=== PATIENT | female | born 1940 | race Caucasian/White ===

== ENCOUNTER → 2016-12-28 | Outpatient (CLI) | payer MEDICARE, BC ==
[~2016-12-28] MED LIST: BACTRIM DS TAB1 EACH; CELECOXIB200 MG PO; HARD NAILS2500 MCG PO; LEVOTHYROXINE137 MCG PO; PANTOPRAZOLE SO40 MG PO; POTASSIUM99 M2 PO; TENORMIN25 M1 PO
--- NOTE | ~2016-12-28 | CO ---
Unit #: [id number] #: [id number] Patient: JIM FOSTER [id number] [address] [place], [place] [address] [id number] O MR#: [id number] NAME: JIM FOSTER ROOM: Age: 76 Sex: F Admission Date: 12/28/2016 : 1940 Attending Physician: Blas Molina M.D. Primary Care Physician: Gold Henry M.D. Consultation Date: 12/28/2016 CONSULTATION REPORT REASON FOR CONSULTATION Preoperative medical evaluation prior to conversion of right unicompartmental knee arthroplasty to total right knee arthroplasty is scheduled by Dr. Molina for 01/11/2017. HISTORY OF PRESENT ILLNESS The patient is a 76-year-old female, who presents to preprocedural screening for the reasons indicated above. The patient reports intermittent pain in the right knee joint somewhat worse after she caught her foot on a blanket getting out of bed this morning and twisted it. She denies chest, arm, neck, jaw pain or pressure. She denies shortness of breath, obstructive sleep apnea, paroxysmal nocturnal dyspnea. She states she will have intermittent lightheadedness, which she states, is associated with sinus congestion. She denies presyncope or syncope. She denies history of myocardial infarction, congestive heart failure, CHF, CVA, many strokes, type 2 diabetes mellitus, or kidney disease. She does have a history of an "air embolism," which she states affected her brain after back surgery and during which time, she describes symptoms similar to delirium episode. She has no residual affects. She has been evaluated by Dr. Molina and scheduled for the above-referenced procedure. PAST MEDICAL HISTORY 1. Osteoarthritis. 2. Hypothyroidism. 3. Obesity, BMI of 34. 4. 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 5. History of palpitations and arrhythmias. 6. History of bradycardia. 7. Hypertension. 8. Recent urinary tract infection on Bactrim. 9. Gastroesophageal reflux disease. 10. History of polyps. 11. Restless legs syndrome. 12. History of bilateral lower extremity venous insufficiency. 13. Health maintenance. The patient has appointment to have teeth cleaned on Monday. PAST SURGICAL HISTORY 1. Tonsillectomy. 2. Bilateral leg vein ligation. 3. D and C x2. 4. Thyroidectomy. 5. Partial hysterectomy with appendectomy. Unit #: [id number] #: [id number] Patient: JIM FOSTER 6. Cholecystectomy. 7. Back surgery x3. 8. Partial right knee replacement. 9. Cataract extraction. Please note, the patient denies a personal and family history of complications to anesthesia. ALLERGIES Denies latex allergy. Penicillins caused "throat to swell," codeine causes severe nausea, and adhesive tape causes irritated skin. CURRENT MEDICATIONS Tenormin 25 mg p.o. at bedtime, levothyroxine sodium 137 mcg p.o. daily, pantoprazole sodium 40 mg p.o. daily, Celebrex 200 mg p.o. b.i.d., potassium 2 tabs p.o. daily, Bactrim DS one tab in the afternoon for urinary tract infection, and hard nails biotin 2500 mcg p.o. daily. SOCIAL HISTORY Denies tobacco use. Consumes EtOH occasionally and denies illicit drug use. FAMILY HISTORY Cancer in both parents. REVIEW OF SYSTEMS Intermittent sinus congestion, chronic left lower extremity edema. A 10-point review of systems is conducted and otherwise negative except as indicated under history of present illness above. PHYSICAL EXAMINATION GENERAL: A 76-year-old female, awake, alert, in no acute distress. VITAL SIGNS: Temperature 97.1, heart rate 57, respiratory rate 18, blood pressure 129/73, and oxygen saturation 99% on room air. HEENT: Atraumatic and normocephalic. Sclerae anicteric. No discharge from eyes, ears, or nares. LYMPH: No preauricular, postauricular, tonsillar, submental, anterior, posterior, or cervical adenopathy. ENDOCRINE: No thyromegaly, thyroid nodules, or tenderness. RESPIRATORY: Clear to auscultation in all pena bilaterally without wheezes, rhonchi, or rales. CARDIOVASCULAR: S1 and S2. Regular rate and rhythm without murmur or rub. GI: Bowel sounds are positive x4. Soft, nontender, and nondistended. EXTREMITIES: 1+ left lower extremity nonpitting edema. No edema in right lower extremity. Calves, soft and nontender bilaterally. NEUROLOGIC: Alert and oriented x3. Speech is clear. Follows directions during examination. DIAGNOSTIC STUDIES LABORATORY RESULTS: WBC 6.7, hemoglobin 12.9, hematocrit 39.6, and platelets 275,000. Sodium 140, potassium 4.4, chloride 103, CO2 of 28, glucose 101, BUN 21, creatinine 0.9, calcium 9.2, AST 19, ALT 18, alkaline phosphatase 72, bilirubin total 0.7, total protein 7.2, and albumin 4.3. Urinalysis negative with neither microscopic nor culture indicated. PT 10.2, INR 0.9. Blood type A negative. Antibody screen negative. MRSA nasal swab report pending at this time. Unit #: [id number] #: [id number] Patient: JIM FOSTER IMAGING STUDIES: Two-view chest x-ray report pending at this time. CARDIOLOGY: 12-lead EKG, sinus bradycardia, low voltage QRS, borderline ECG. Confirmed report pending at this time. IMPRESSION The patient is a 76-year-old female, who presents to preprocedural screening for: 1. Preoperative medical evaluation prior to conversion failed unicompartmental right knee to right total knee arthroplasty. The patient's Healy revised cardiac risk index is equal to 0.4% to 0.5% and represents the patient's rate of fatal or nonfatal myocardial infarction, cardiopulmonary arrest, arrhythmia, and/or pulmonary edema. This has been discussed in detail with the patient. She wishes to proceed with surgery as scheduled at this time. Given the patient's history of palpitations. We will recommend telemetry postoperatively. The patient is completely asymptomatic and is not having palpitations on clinical exam at this time. 2. Hypothyroidism. We will continue home dose of levothyroxine and check TSH and free T4 of blood in lab today. 3. Obesity. BMI of 34. 4. 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 5. History of bradycardia. 6. Hypertension. Continue current medications and adjust based on blood pressure postoperatively. 7. Urinary tract infection on Bactrim. The patient is established with Dr. Sergey Humphries, urologist and has an appointment to follow up on Monday of this week for recheck of urine culture. The patient has been informed that her culture at this time is negative for urinary tract infection. She is asymptomatic. However, it has been emphasized. She is to complete her antibiotic as prescribed and to keep her appointment with Dr. Humphries on Monday and she has verbalized understanding this information. 8. Gastroesophageal reflux disease. 9. History of polyps. 10. Osteoarthritis. 11. Restless legs syndrome. 12. History of venous insufficiency. 13. Health maintenance: The patient is to have her dentist to provide a letter of preoperative dental clearance from her dentist to Dr. Molina prior to surgery. Thank you for allowing us to participate in the care of this patient. We will gladly follow her for postop medical management pending order of Dr. Molina. Dictated by... Perla Liriano A.P.R.N. for Justen Xiao/lesia TD: 12/29/2016 14:42 JOB #: [id number] Unit #: [id number] #: [id number] Patient: JIM FOSTER CONSULTATION REPORT Page 1 of 1 X Perla Liriano APRN X CONSULTATION REPORT
--- NOTE | ~2016-12-28 | CR63 ---
[facility] A Service of [facility] RADIOLOGY TEXT RESULTS PATIENT: JIM FOSTER LOCATION: [facility] : [birth year] UNIT #: [id number] AGE: [address]: Blas Molina MD SEX: F ORDER DR: [id number] [facility] [address]. [place], [place] [address] [id number] O MR#: [id number] Acc #: [id number] NAME: JIM FOSTER : 1940 SEX: F STUDY DATE/TIME: 12/28/2016 17:22 UNIT: [facility] ROOM: STUDY DESCRIPTION: CR Chest 2 View Attending Physician: Blas Molina M.D. Referring Physician: Blas Molina M.D. Ordering Physician: Blas Molina M.D. Primary Care Physician: Gold Henry M.D. MEDICAL IMAGING REPORT This report is preliminary unless electronic signature is present EXAM PA and lateral chest radiograph. INDICATIONS Preoperative examination prior to conversion of a uni right knee to a right knee arthroplasty. FINDINGS Comparison made to prior exam from July 15, 2011. Heart size is within normal limits. The patient appears to some scarring versus atelectasis at the left lung base. No pneumothorax or pleural effusion is seen. No aggressive osseous abnormalities are identified. IMPRESSION Scarring versus atelectasis noted at the left lung base, otherwise, no acute disease. Dictated by... Mary Alaniz M.D. THIS IS AN ELECTRONICALLY VERIFIED REPORT Mary Alaniz M.D. at 12/29/2016 2:43 PM AFF/bd TD: 12/29/2016 12:26 JOB #: [id number] MEDICAL IMAGING REPORT Page 1 of 1 COPY
--- NOTE | ~2016-12-28 | EKG ---
PATIENT: JIM FOSTER UNIT #: [id number] Ventricular Rate: 57 BPM Atrial Rate: 57 BPM P-R Interval: 202 ms QRS Duration: 106 ms Q-T Interval: 474 ms QTC Calculation(Bezet): 461 ms P Sharon: 39 degrees Calculated R Sharon: 21 degrees Calculated T Sharon: 8 degrees Diagnosis Line: Sinus bradycardia Diagnosis Line: Low voltage QRS Diagnosis Line: Borderline ECG Diagnosis Line: No previous ECGs available Diagnosis Line: Confirmed by RASHI GUILLERMO MD ([id number]) on Diagnosis Line: 12/30/2016 10:50:26 AM INTERPRETING MD: EAGLE ADAMSON
[2016-12-28 13:15] LABS: HEMATOCRIT 39.6 % (35.0-45.0); HEMOGLOBIN 12.9 gm/dL (12.0-16.0); MEAN CORPUSCULAR HEMOGLOBIN 28.5 PG (28-34); MEAN CORPUSCULAR HGB CONC 32.7 g/dL (30-36); MEAN PLATELET VOLUME 8.3 FL (6.5-11.5); RED BLOOD COUNT 4.55 X10e (3.90-5.30); RED CELL DISTRIBUTION WIDTH 14.6 % (11.0-15.5); WHITE BLOOD COUNT 6.7 X10e3 (4.0-10.5)
[2016-12-28 13:28] LABS: INR 0.9; PROTHROMBIN TIME (PATIENT) 10.2 SECONDS (10.0-11.7)
[2016-12-28 13:44] LABS: URINE APPEARANCE CLEAR; URINE BILIRUBIN NEG (NEG); URINE BLOOD NEG (NEG); URINE COLOR YELLOW; URINE GLUCOSE NEG (NEG); URINE KETONE NEG (NEG); URINE LEUKOCYTE ESTERASE NEG (NEG); URINE NITRATE NEG (NEG); URINE PH 5.5 (5-8); URINE PROTEIN NEG (NEG); URINE SPECIFIC GRAVITY 1.012 (1.003-1.035); URINE UROBILINOGEN 0.2 MG/DL (NEG)
[2016-12-28 13:46] LABS: ALBUMIN SERUM 4.3 g/dL (3.5-5.0); BILIRUBIN,TOTAL 0.7 mg/dL (0.2-2.0); BUN/CREATININE RATIO 23.33; CALCIUM SERUM 9.2 mg/dL (8.4-10.2); CREATININE SERUM 0.9 mg/dL (0.6-1.4); GLOM FILT RATE Estimated 62.2 mL/min (>60); POTASSIUM 4.4 mmol/L (3.5-5.1); PROTEIN TOTAL SERUM 7.2 g/dL (6.0-8.3)
[2016-12-28 14:02] LABS: URINE SOURCE CLEAN CATCH
[2016-12-28 14:03] LABS: CULTURE INDICATED? NO
[2016-12-28 16:29] LABS: THYROID STIMULATING HORMONE 2.71 uIU/ml (0.34-5.60)
[2016-12-28 16:36] LABS: FREE THYROXIN (T4) 1.1 ng/dL (0.58-1.64)
== END | disposition home or self-care (01) ==
LOC: CAMB 12:00
PROVIDERS: Orthopaedic Surgery
DX: Z01.818 Encounter for other preprocedural examination (principal); M17.11 Unilateral primary osteoarthritis, right knee; T84.092A Other mechanical complication of internal right knee prosthesis, initial encounter; R91.8 Other nonspecific abnormal finding of lung field
CPT/HCPCS: 36415; 71020; 80053; 81003; 84439; 84443; 85027; 85610; 86850; 86900; 86901; 87070; 93005